=== PATIENT | female | born 1990 | race Caucasian/White ===

== ENCOUNTER 2021-03-31 22:36 | Emergency (ER) | payer MEDICAID ==
[~2021-03-31] VITALS: Ht 180.3 cm; Wt 65.0 kg
[2021-03-31] MEDS ORDERED: CEPH-585 PO (22:56)
[2021-03-31] MEDS ORDERED: SULF1TAB45 PO (22:56)
[2021-03-31 23:00] VITALS: BP 117/80
[2021-03-31] MEDS ORDERED: cephalexin 250mg capsule PO ONE (23:00)
[2021-03-31] MEDS ORDERED: sulfamethoxazole/trimethoprim DS (800/160mg) tablet PO ONE (23:00)
== END 2021-03-31 23:12 ==
LOC: ER 22:36
DX: L02.511 Cutaneous abscess of right hand (principal); L03.113 Cellulitis of right upper limb; F15.129 Other stimulant abuse with intoxication, unspecified; M25.421 Effusion, right elbow; F17.210 Nicotine dependence, cigarettes, uncomplicated; Z79.2 Long term (current) use of antibiotics
CPT/HCPCS: 99283